=== PATIENT | male | born 1945 | race Caucasian/White ===

== ENCOUNTER 2021-04-11 19:17 | Emergency (ER) | payer OTHER, BC ==
[~2021-04-11] VITALS: Ht 185.4 cm; Wt 100.7 kg
[2021-04-11 19:44] LABS: ABSOLUTE NEUTROPHILS 7.9 thou/uL (1.4-8.2); BASOPHILS 0.5 % (0.0-2.0); EOSINOPHILS 1.2 % (0.0-3.0); HEMATOCRIT 29.3 % (42.0-52.0); HEMOGLOBIN 10.2 gm/dL (14.0-18.0); LYMPHOCYTES 14.3 % (24.0-44.0); MCHC 34.9 g/dL (28.0-37.0); MCV 88.8 fL (80.0-100.0); MONOCYTES 6.5 % (1.0-8.0); PLATELET COUNT 215 thou/uL (150-400); POLYS 77.5 % (36.0-66.0); RDW 15.2 % (10.5-14.5); WBC 10.2 thou/uL (4.0-11.0)
[2021-04-11 19:51] LABS: ANION GAP 7 mmol/L (7-16); BUN 27 mg/dL (7-18); CALCIUM 8.8 mg/dL (8.5-10.1); CHLORIDE 107 mmol/L (98-107); CO2 28 mmol/L (21-32); CREATININE 1.1 mg/dL (0.7-1.3); GLUCOSE 230 mg/dL (74-106); POTASSIUM 3.9 mmol/L (3.5-5.1); SODIUM 142 mmol/L (136-145)
[2021-04-11 20:06] LABS: ALBUMIN 2.7 g/dL (3.4-5.0); LIPASE 146 U/L (73-393); MAGNESIUM 1.7 mg/dL (1.8-2.4); SGOT 16 U/L (15-37); SGPT 28 U/L (30-65); TOTAL BILIRUBIN 0.7 mg/dL (0.2-1.0); TOTAL PROTEIN 6.3 g/dL (6.4-8.2); TROPONIN-I <0.06 ng/mL (<0.06)
[2021-04-11 20:27] LABS: URINE BILIRUBIN NEGATIVE (Negative); URINE BLOOD 1+ (Negative); URINE CLARITY CLEAR; URINE COLOR YELLOW; URINE GLUCOSE-RANDOM* NEGATIVE (Negative); URINE KETONES NEGATIVE (Negative); URINE LEUKOCYTES-REFLEX NEGATIVE (Negative); URINE NITRITE-REFLEX NEGATIVE (Negative); URINE PROTEIN (DIPSTICK) 2+ (Negative); URINE UROBILINOGEN 0.2 E.U./dl (0.2-1.0)
[2021-04-11 20:52] LABS: CASTS None Seen /LPF (None Seen); SQUAMOUS 0-3 Few /LPF (0-3); URINE WBC-REFLEX 0-5 Rare /HPF (0-5)
[2021-04-11 20:53] LABS: BACTERIA-REFLEX 1-9 Few /HPF (None Seen); CRYSTALS None Seen /LPF (None Seen); URINE RBC 3-10 Few /HPF (NONE SEEN)
[2021-04-11] MEDS ORDERED: EZETIMIBE10 MG PO (21:12)
[2021-04-11] MEDS ORDERED: FUROSEMIDE 20 M20 M1 PO (21:12)
[2021-04-11] MEDS ORDERED: POTASSIUM CHLO10 ME1 PO (21:13)
[2021-04-11] MEDS ORDERED: LEVOTHYROXINE200 MC1 PO (21:13)
[2021-04-11] MEDS ORDERED: METFORMIN HCL500 M1 PO (21:13)
[2021-04-11] MEDS ORDERED: WARFARIN SODIUM2 MG PO (21:13)
[2021-04-11] MEDS ORDERED: SILODOSIN8 MG PO (21:13)
[2021-04-11] MEDS ORDERED: FISH OIL 1,001000 M2 PO (21:14)
[2021-04-11] MEDS ORDERED: FENOFIBRATE145 MG PO (21:14)
[2021-04-11] MEDS ORDERED: LIPITOR80 MG PO (21:14)
[2021-04-11] MEDS ORDERED: LISINOPRIL-HCT1 EACH PO (21:14)
[2021-04-11] MEDS ORDERED: NORVASC5 MG PO (21:14)
[2021-04-11] MEDS ORDERED: LASIX 40 MG TAB40 MG PO (21:17)
[2021-04-11 21:52] VITALS: BP 195/74
--- NOTE | 2021-04-12 07:17 | EKG ---
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1945 Requested By: Fredy Myers Order Number: [id number] MD: Remigio Chapa Measurements Intervals [place] Rate: 58 P: 36 DE: 205 QRS: -25 QRSD: 114 T: 100 QT: 429 QTc: 422 Interpretive Statements Sinus rhythm Probable left atrial enlargement LVH with IVCD and secondary repol abnrm No previous ECG available for comparison Electronically Signed On 04-12-2021 7:17:45 CDT by Remigio Chapa [email or web address] <ELECTRONICALLY SIGNED> By: Remigio Chapa MD, [facility] 04/12/21716 31 31 Remigio Chapa MD, FACC /EPI
--- NOTE | 2021-04-12 07:17 | EKG ---
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 : 1945 Requested By: Fredy Myers Order Number: [id number] MD: Remigio Chapa Measurements Intervals [place] Rate: 58 P: 36 CO: 205 QRS: -25 QRSD: 114 T: 100 QT: 429 QTc: 422 Interpretive Statements Sinus rhythm Probable left atrial enlargement LVH with IVCD and secondary repol abnrm No previous ECG available for comparison Electronically Signed On 04-12-2021 7:17:48 CDT by Remigio Chapa [email or web address] <ELECTRONICALLY SIGNED> By: Remigio Chapa MD, [facility] 04/12/21 0717 31 31 Remigio Chapa MD, FACC /EPI
== END 2021-04-11 22:01 | disposition home or self-care (01) ==
LOC: ER 19:17
PROVIDERS: Emergency Medicine
DX: J81.1 Chronic pulmonary edema (principal); I10 Essential (primary) hypertension; Z91.09 Other allergy status, other than to drugs and biological substances; Z79.899 Other long term (current) drug therapy; Z79.84 Long term (current) use of oral hypoglycemic drugs; Z20.822 Contact with and (suspected) exposure to COVID-19; R60.0 Localized edema; Z88.8 Allergy status to other drugs, medicaments and biological substances